=== PATIENT | female | born 1955 | race Caucasian/White ===

== ENCOUNTER → 2017-08-05 | Day surgery (SDC) | payer OTHER ==
--- NOTE | 2017-08-08 15:02 | PATH ---
Cytology Non-Gynecological Report Patient Name: CARLO STRATTON [facility]. Rec. #: [id number] /Age/Gender: 1955 (Age: 62) / F Account: [id number] Location: RADIOLOGY Taken: 08/05/2017 Received: 08/05/2017 Reported: 08/08/2017 Physicians: Fabian Ty M.D. Specimen(s) Received RIGHT THYROID FNA Clinical History Thyroid nodule, 3.21 x 2.03 x 1.85 cm Final Diagnosis THYROID, RIGHT, FINE NEEDLE ASPIRATION: SATISFACTORY FOR EVALUATION. [place] CLASS II: BENIGN. CYTOLOGIC FINDINGS ARE CONSISTENT WITH A BENIGN FOLLICULAR NODULE. BENIGN FOLLICULAR CELLS, FEW MACROPHAGES, AND COLLOID PRESENT. Electronically Signed Fabby De La Vega M.D. Gross Description Received are eight direct smears, four of which are air-dried and Diff-Quik stained, and four of which are alcohol fixed and Pap stained. Also received is 20 ml of bloody formalin from which one cellblock is prepared.
== END | disposition home or self-care (01) ==
LOC: JRADIR 09:04
PROVIDERS: ATTEND Internal Medicine
PROC: 0G9H3ZX Drainage of Right Thyroid Gland Lobe, Percutaneous Approach, Diagnostic (ICD-10-PCS; principal; 2017-08-05)
DX: E04.1 Nontoxic single thyroid nodule (principal)
CPT/HCPCS: 76942; 88173; 88305-TC